=== PATIENT | male | born 1935 | race African-American/Black ===

== ENCOUNTER 2017-07-31 05:55 | Day surgery (SDC) | payer MEDICARE, MEDICAID ==
[~2017-07-31] VITALS: Ht 185.4 cm; Wt 86.2 kg
[2017-07-31] MEDS ORDERED: PROPOFOL 200MG/20ML VIAL IV ONE ×2 (06:47→07:41)
[2017-07-31] MEDS ORDERED: FENTANYL CITRATE/PF 50MCG/ML 2ML VIAL ONE (06:48)
[2017-07-31] MEDS ORDERED: SUCCINYLCHOLINE CHLORIDE 200MG/10ML VIAL IV ONE ×2 (06:48→06:50)
[2017-07-31] MEDS ORDERED: LIDOCAINE HCL/PF 1% 10 MG/ML 5ML VIAL ONE (06:48)
[2017-07-31] MEDS ORDERED: SODIUM CHLORIDE 0.9% 1,000 ML IV SCH (06:50)
[2017-07-31 06:57] LABS: CLARITY URINE CLEAR (CLEAR); COLOR URINE YELLOW (YELLOW); KETONES URINE NEGATIVE (NEGATIVE); LEUKOCYTE ESTERASE URINE 1+ (NEGATIVE); NITRITE URINE NEGATIVE (NEGATIVE); OCCULT BLOOD URINE 2+ (NEGATIVE); PH URINE 6.5 (4.5-8.0); PROTEIN URINE NEGATIVE (NEGATIVE); SPECIFIC GRAVITY URINE 1.018 (1.005-1.030)
[2017-07-31] MEDS ORDERED: BUPIVACAINE HCL/PF 0.25% (2.5MG/ML) 10ML ONE (07:06)
[2017-07-31] MEDS ORDERED: HYDROMORPHONE HCL/PF 2MG/ML CPJ IV PRN (07:15)
[2017-07-31] MEDS ORDERED: ONDANSETRON HCL 4MG/2ML VIAL IV PRN (07:15)
[2017-07-31] MEDS ORDERED: CEFAZOLIN SODIUM 1000MG/VIAL ONE (07:28)
[2017-07-31] MEDS ORDERED: BACITRACIN ZINC 15GM TUBE TOP ONE (07:54)
[2017-07-31] MEDS ORDERED: GLYCOPYRROLATE 0.2 MG/ML 2ML VIAL ONE (08:05)
[2017-07-31] MEDS ORDERED: NIFE-1 PO (08:11)
[2017-07-31] MEDS ORDERED: PRAV20TA57 PO (08:11)
== END 2017-07-31 10:15 | disposition home or self-care (01) ==
LOC: OR 05:55
PROVIDERS: ATTEND Urology
DX: N47.1 Phimosis (principal); Z79.899 Other long term (current) drug therapy; I10 Essential (primary) hypertension; E11.9 Type 2 diabetes mellitus without complications; F17.290 Nicotine dependence, other tobacco product, uncomplicated
CPT/HCPCS: 54161; 81003; 82962; 88304; 93005; J0330; J0690; J3010; J3490; J7030; J2704